=== PATIENT | female | born 2005 | race Caucasian/White ===

== ENCOUNTER 2025-01-04 03:51 | Emergency (ER) | payer BC ==
[~2025-01-04] VITALS: Ht 149.9 cm; Wt 51.5 kg
[2025-01-04] MEDS ORDERED: ONDANSETRON 4MG 2ML VIAL As Ordered ONE (04:31)
[2025-01-04] MEDS: ONDANSETRON 4MG 2ML VIAL IV ONE ×2 (04:56→06:24)
[2025-01-04] MEDS: NS (Normal Saline) 0.9% 1,000 ML IV ONE (04:56)
[2025-01-04 05:07] LABS: BASO % 0.1 % (0.0-1.0); HEMATOCRIT 40.8 % (36.0-47.0); LYMPH # 1.1 10^3/uL (1.5-5.0); MEAN CORPUSCULAR HEMOGLOBIN 27.7 pg (27.0-33.0); MEAN CORPUSCULAR HGB CONC 34.3 g/dl (32.0-36.5); MEAN CORPUSCULAR VOLUME 80.6 fl (80.0-96.0); MONO # 0.3 10^3/uL (0.0-0.8); MONO % 1.2 % (2.0-8.0); NEUTROPHILS % 93.1 % (36.0-66.0); PLATELET COUNT, AUTOMATED 334 10^3/uL (150-450); RED BLOOD COUNT 5.06 10^6/uL (4.00-5.40); WHITE BLOOD COUNT 21.4 10^3/uL (4.0-10.0)
[2025-01-04] MEDS: METOCLOPRAMIDE INJ 10MG/2ML VIAL IV ONE (05:33)
[2025-01-04 06:01] LABS: KETONE, URINE AUTO RFX 2+ mg/dL (NEGATIVE); MUCUS, URINE RFX SMALL (NEGATIVE); NITRITE, URINE AUTO RFX NEGATIVE (NEGATIVE); RBC, URINE AUTO RFX 8 /HPF (0-3); SQUAM EPITHELIAL CELL UR AURFX 23 /HPF (0-6); WBC, URINE AUTO RFX 8 /HPF (0-3)
[2025-01-04 06:02] LABS: LEUKOCYTE ESTERASE UR AUTO RFX 3+ (NEGATIVE)
[2025-01-04 06:39] LABS: LIPASE 34 U/L (12-53)
[2025-01-04 06:41] LABS: ALBUMIN 4.1 G/DL (3.2-5.2); ALKALINE PHOSPHATASE 54 U/L (35-104); ALT/SGPT 21 U/L (7.0-40); AMYLASE 71 U/L (30-118); AST/SGOT 27 U/L (<34); BILIRUBIN,DIRECT 0.2 MG/DL (<0.4); BILIRUBIN,TOTAL 0.8 MG/DL (0.3-1.2); BLOOD UREA NITROGEN 11 MG/DL (9-23); CALCIUM LEVEL 9.7 MG/DL (8.5-10.1); CARBON DIOXIDE LEVEL 16 MMOL/L (20-31); CHLORIDE LEVEL 109 MMOL/L (98-107); CREATININE FOR GFR 0.58 MG/DL (0.55-1.30); GLUCOSE, FASTING 121 MG/DL (60-100); POTASSIUM SERUM 4.1 MMOL/L (3.5-5.1); SODIUM LEVEL 140 MMOL/L (136-145); TOTAL PROTEIN 7.9 G/DL (5.7-8.2)
[2025-01-04] MEDS ORDERED: ONDA-282 PO (09:31)
[2025-01-04 09:43] VITALS: BP 105/58; TEMP 98.3; O2SAT 99
== END 2025-01-04 09:51 | disposition home or self-care (01) ==
LOC: EDBD 03:51 → M ED 03:51
DX: O99.611 Diseases of the digestive system complicating pregnancy, first trimester (principal); K52.9 Noninfective gastroenteritis and colitis, unspecified; Z3A.12 12 weeks gestation of pregnancy; Z79.83 Long term (current) use of bisphosphonates
CPT/HCPCS: 76801; 80048; 80076; 81001; 82150; 83690; 85025; 87088; 87486; 87581; 87633; 87798; 96361; 96374; 96375; 96376; 99284; J2405; J2765